=== PATIENT | female | born 1960 | race Hispanic/Latino ===

== ENCOUNTER → 2018-06-03 | Day surgery (SDC) | payer BC ==
[2018-06-02 15:16] VITALS: BMI 33.6
[~2018-06-03] MED LIST: PROPOFOL 200 MG/20 ML VIAL ONE
--- NOTE | 2018-06-03 07:19 | HP ---
SHORT STAY HISTORY AND PHYSICAL DATE OF ADMISSION: 06/03/2018 HISTORY OF PRESENT ILLNESS: Ms. Mel Goldberg is a very pleasant 57-year-old Latin[place] female with history of hiatus hernia, esophagitis and esophageal stricture. The patient has had [address] Fabio Dickinson. The patient was seen for dysphagia about a year ago and was found to have erosive esophagitis and esophageal stricture. She underwent dilation and was placed on PPI. She has done very well until recently. She comes in for dysphagia. The patient has no heartburn at the pre sent time. The patient comes for EGD dilation because of dysphagia and past history of esophageal st ricture. ALLERGIES: None. MEDICAL ILLNESSES: 1. Esophagitis. 2. Hiatus hernia. 3. Status post fundoplication. 4. Esophageal stricture. 5. Migraine. 6. Allergic rhinitis. SOCIAL HISTORY: The patient does not smoke or drink alcohol. PHYSICAL EXAMINATION: VITAL SIGNS: Pulse is 70, blood pressure 130/80. HEENT: Conjunctivae clear. CARDIOVASCULAR SYSTEM: First and second heart sounds normal. LUNGS: Clear to auscultation. ABDOMEN: Soft to palpate. No organomegaly. No tenderness. No masses. EXTREMITIES: Reveal no edema. CLINICAL IMPRESSION: Dysphagia, history of esophageal stricture and dilation in the past. PLAN: Esophagogastroduodenoscopy and dilation.
--- NOTE | 2018-06-03 11:51 | OP ---
DATE OF PROCEDURE: 06/03/2018 SURGEON: Marylou Stokes M.D. OPERATIVE PROCEDURE: 1. Esophagogastroduodenoscopy. 2. Esophagogastroduodenoscopy with balloon dilation to stage 2-1/2. PREOPERATIVE DIAGNOSIS: A 57-year-old female with dysphagia, past history of esophageal stricture. The patient has recurrence of dysphagia. POSTOPERATIVE DIAGNOSES: 1. Severe erosive esophagitis, distal esophagus with a stricture. 2. Normal stomach and duodenum. PROCEDURE IN DETAIL: The patient was placed on her left lateral position and was given sedation by A nesthesia Department. A Pentax video gastroscope under direct vision was passed down the oropharynx, past the GE junction, into the stomach and subsequently to descending duodenum. The esophageal muco sa appears ____ over the upper two-thirds. Over the distal esophagus, the patient found to have a gr tamara 4 esophagitis, ulcerations, this appears circumferential. The mucosa was very friable. At the G E junction, the patient was found to have a stricture. However, the scope advanced into the stomach without difficulty. Retroflexion failed to show pathology in the fundus or cardia. The gastric body , gastric antrum, and duodenum, no pathology seen. A Bard balloon size 15-18 mm passed through biops y channel and was carefully withdrawn and positioned over the strictured area. This was inflated to stage I for 2 minutes followed by stage II for 2 minutes. Inflated to stage I for 2-1/2 ____ limite d time. Also, dilatation of the lumen appears to be more open than before. There was friability and mild oozing of blood noted. The stomach decompressed. RECOMMENDATIONS: 1. Aggressive PPI therapy with omeprazole 40 twice a day. 2. Repeat EGD hopefully in 3-4 weeks after she is on the PPI for the next 2-3 weeks to promote heali ng.
== END ==
LOC: SDC 07:41
PROVIDERS: ATTEND Internal Medicine Gastroenterology
PROC: 0D758ZZ Dilation of Esophagus, Via Natural or Artificial Opening Endoscopic (ICD-10-PCS; principal; 2018-06-03)
DX: K22.2 Esophageal obstruction (principal); K22.10 Ulcer of esophagus without bleeding; Z79.899 Other long term (current) drug therapy
CPT/HCPCS: J2704

== ENCOUNTER 2018-07-12 05:50 | Day surgery (SDC) | payer BC ==
[2018-07-11 11:20] VITALS: BMI 34.9
--- NOTE | 2018-07-12 03:40 | HP ---
DATE OF ADMISSION: 07/12/2018 SHORT STAY HISTORY AND PHYSICAL HISTORY OF PRESENT ILLNESS: This is a 57-year-old Latin-[place] female with a hiatus hernia, erosiv e esophagitis and dysphaia. The patient has had hiatus hernia repair done by Dr. Fabio Dickinson. [place] sanford, she still has erosive esophagitis on endoscopy. She has no dysphagia and has had dilation done ab out 2 months ago. At that time, she was found to have multiple ulcerations and also erosive esophagi tis. She is coming for repeat EGD and dilation. ALLERGIES: None. MEDICAL ILLNESSES: 1. Migraine. 2. Erosive esophagitis. 3. Esophageal stricture. 4. Allergic rhinitis. SOCIAL HISTORY: The patient does smoke or drink alcohol. PHYSICAL EXAMINATION: GENERAL: Appears comfortable. VITAL SIGNS: Pulse is 70, blood pressure 130/80. HEENT: Conjunctivae clear. CARDIOVASCULAR: First and second heart sounds normal. LUNGS: Clear to auscultation. ABDOMEN: Soft to palpate. No organomegaly. No tenderness. No mass. ADMITTING DIAGNOSIS: Erosive esophagitis, esophageal stricture. PLAN: Esophagogastroduodenoscopy and dilation.
[2018-07-12] MEDS ORDERED: Fentanyl 100 MCG/2 ML VIAL ONE (08:00)
--- NOTE | 2018-07-12 08:56 | OP ---
DATE OF PROCEDURE: 07/12/2018 SURGEON: Marylou Stokes M.D. OPERATIVE PROCEDURE: 1. Esophagogastroduodenoscopy. 2. Esophagogastroduodenoscopy with balloon dilation. PREOPERATIVE DIAGNOSES: 1. Dysphagia. 2. Erosive esophagitis. 3. Status post hiatus hernia repair. POSTOPERATIVE DIAGNOSES: 1. Esophagitis with some exudates and erosions distal esophagus. 2. Distal esophageal stricture. 3. Normal stomach and duodenum. PROCEDURE IN DETAIL: The patient was placed on her left lateral position and was given sedation by Anesthesia Department. A Pentax video gastroscope under direct vision was passed in the oropharynx, past the GE junction, into the stomach. Compared to the last examination about 5 weeks ago the ulcerations appears to have healed, but she still has some esophagitis and erosions. The patient had a stricture of the GE junction. The scope was advanced to the stomach without difficulty. Retroflexion failed to show any pathology in the fundus or cardia. The gastric body, gastric antrum, no pathology seen. The duodenal bulb, descending duodenum, no pathology seen. The scope was withdrawn back into the stomach. A Bard balloon size 15-18 mm was passed down the biopsy channel and placed over the distal esophagus and GE junction. The balloon was inflated to stage II for 2 minutes and the same thing one more time. Following dilation, there is mild oozing of blood and also a mucosal tear as suspected seen at the distal esophageal GE junction. There were no other complications noted. The stomach was decompressed and the scope removed. CLINICAL IMPRESSION: 1. Erosive esophagitis. 2. Distal esophageal stricture, status post dilatation with a balloon size 15- 18 mm to stage 2. RECOMMENDATIONS: 1. Continue proton-pump inhibitor. 2. The patient was advised to call me if she develops chest discomfort, abdominal pain, hematemesis, melena. 3. Come back to clinic in 2 weeks. 4. Repeat EGD and dilation as necessary in the future. MTDD
[2018-07-12] MEDS ORDERED: PROPOFOL 200 MG/20 ML VIAL ONE (15:34)
[2018-07-12] MEDS ORDERED: Lidocaine 1% PF 5 ML VIAL ONE (15:34)
== END 2018-07-12 09:17 | disposition home or self-care (01) ==
LOC: SDC 05:50
PROVIDERS: ATTEND Internal Medicine Gastroenterology
PROC: 0D758ZZ Dilation of Esophagus, Via Natural or Artificial Opening Endoscopic (ICD-10-PCS; principal; 2018-07-12)
DX: K22.2 Esophageal obstruction (principal); K22.10 Ulcer of esophagus without bleeding
CPT/HCPCS: J2001; J2704; J3010

== ENCOUNTER 2018-10-25 15:50 | Outpatient (CLI) | payer BC ==
--- NOTE | 2018-10-25 17:24 | CT ---
CT OF THE ABDOMEN AND PELVIS WITHOUT IV CONTRAST: 10/25/18 INDICATION: Right lower quadrant abdominal pain with pain across the upper abdomen and occasional sharp shooting in the right lower quadrant. Patient has had a cholecystectomy and hysterectomy. COMPARISON: Prior CT of the abdomen and pelvis with contrast dated 07/08/16. FINDINGS: There is a normal appendix in the right lower quadrant. The bladder, rectum, perirectal soft tissues are unremarkable appearing. Small bowel is normal appearing. The gallbladder is surgically absent. T here is a small hiatal hernia with enteric contrast material seen within the distal esophagus may ref lect reflux or dysmotility. Unopacified pancreas, adrenal glands and kidneys are unremarkable. No definite renal or ureteral calc ulus is grossly evident. No definite acute osseous abnormality is evident. IMPRESSION: No definite CT explanation for the patient's abdominal pain. There is a normal appendix in the right lower quadrant of the abdomen. No free fluid is evident. No corrie hydronephrosis is evident. There is a small hiatal hernia with mild amount of refluxed material versus dysmotility. POS: TPC
== END 2018-10-25 15:51 | disposition home or self-care (01) ==
LOC: BICCT 15:50
PROVIDERS: ATTEND Physician Assistant
DX: R10.31 Right lower quadrant pain (principal); K44.9 Diaphragmatic hernia without obstruction or gangrene
CPT/HCPCS: 74176; 87086

== ENCOUNTER 2019-02-06 13:27 | Outpatient (CLI) | payer BC ==
--- NOTE | 2019-02-06 14:20 | RAD ---
LUMBAR SPINE 2 VIEWS: HISTORY: Spondylosis, back pain without radiculopathy. COMPARISON: 11/14/2004. FINDINGS: Generalized disk-osteophytosis. Disk space narrowing with sclerosis at L5-S1. Generalized facet art hrosis. IMPRESSION: Multilevel spondylosis with disk-osteophytosis and facet arthrosis, progressive from prior study. No acute fracture or dislocation or significant malalignment. POS: TPC
== END 2019-02-06 13:28 | disposition home or self-care (01) ==
LOC: BICRAD 13:27
PROVIDERS: ATTEND Family Medicine
DX: M47.816 Spondylosis without myelopathy or radiculopathy, lumbar region (principal)
CPT/HCPCS: 72100